=== PATIENT | female | born 1940 | race Caucasian/White ===

== ENCOUNTER 2019-06-13 14:15 | Inpatient (IN) | payer MEDICARE, OTHER ==
[~2019-06-13] VITALS: Ht 160 cm; Wt 54.4 kg
[2019-06-13] MEDS ORDERED: TEMA15CA PO (16:20)
[2019-06-13] MEDS ORDERED: ROSU10TA2 PO (16:20)
[2019-06-13] MEDS ORDERED: METF-494 PO (16:20)
[2019-06-13] MEDS ORDERED: HYDR-3972 PO (16:20)
[2019-06-13] MEDS ORDERED: MAG355OR18 PO (16:20)
[2019-06-13] MEDS ORDERED: MAGN400O6 PO (16:20)
[2019-06-13] MEDS ORDERED: ACET-2154 PO (16:20)
[2019-06-13] MEDS ORDERED: ENOX40DI SQ (16:20)
[2019-06-13] MEDS ORDERED: GABA-532 PO (16:20)
[2019-06-13] MEDS ORDERED: METO-358 PO (16:20)
[2019-06-13 16:38] VITALS: BP 129/54
[2019-06-13] MEDS ORDERED: INSU100V28 SQ (17:36)
--- NOTE | 2019-06-13 17:50 | NUR ---
Patient S/P admission around 4pm via ambulance with 2 EMT in stretcher. Stable condition. DX: S/P left Hip fracture/ left hemiatroplasty. Accdg to EMT, Conrath 5-325mg was given to the patient around 330pm. Alert orientedx3, icelandic speaking.Redness at sacrum, left heel redness, left hip puja in suture noted. off loading and applied zguard. ordered wound consult and air mattress bed. Continent with bowel and bladder with diaper and abductor pillow. not in distress. will continue monitor
--- NOTE | 2019-06-13 19:30 | NUR ---
Sleeping during initial rounds. HOB slightly elevated. No s/s of respiratory distress noted. Safety measure and fall precaution maintained. Continue care as planned.
[2019-06-13 20:00] VITALS: BP 127/55
[2019-06-13] MEDS ORDERED: Z GUARD REMEDY PASTE 57 GM TUBE TOP PRN (20:15)
[2019-06-13] MEDS ORDERED: TEMAZEPAM 15 MG CAPSULE PO PRN (22:45)
[2019-06-13] MEDS ORDERED: MAG HYDROX/AL HYDROX/SIMETH 30 ML LIQUID UDC PO PRN (22:45)
[2019-06-13] MEDS ORDERED: MAGNESIUM HYDROXIDE 30 ML LIQUID UDC PO PRN (22:45)
[2019-06-13] MEDS ORDERED: ACETAMINOPHEN 325 MG TABLET PO PRN (22:45)
[2019-06-13] MEDS ORDERED: DEXTROSE 50% 50 ML DISP.SYRIN IV PRN (22:45)
[2019-06-14 05:00] VITALS: BP 142/74
[2019-06-14] MEDS: HYDROCODONE/APAP 5-325MG TABLET PO PRN ×3 (05:16→21:32)
[2019-06-14] MEDS: BLOOD SUGAR DIAGNOSTIC 1 EACH STRIP VI SCH ×4 (05:46→21:39)
--- NOTE | 2019-06-14 06:35 | NUR ---
Shift End Report: Vs stable. Slept well. No complaint presented all night. No s/s of hypo/hyperglycemia. All needs attended and met. No significant event reported all night. Continue current rehab plan of care.
[2019-06-14 07:53] VITALS: BP 134/63
[2019-06-14] MEDS: GABAPENTIN 100 MG CAPSULE PO SCH ×3 (08:16→17:07)
[2019-06-14] MEDS: METOPROLOL SUCCINATE XL 50 MG TAB.SR.24H PO SCH (08:18)
[2019-06-14] MEDS: ENOXAPARIN SODIUM 40 MG/0.4 ML DISP.SYRIN SQ SCH (08:19)
[2019-06-14] MEDS: INSULIN REGULAR, HUMAN 300 UNIT/3 ML VIAL SQ PRN ×4 (09:13→21:41)
--- NOTE | 2019-06-14 09:25 | NUR ---
Patient awake, alert, oriented x 3, not in any form of distress, on room air. She denies any pain or discomfort at this time. Patient assisted by OT to transfer and sit on the wheelchair for breakfast. Due medications administered and tolerated well. Needs attended to promptly. Call light and frequently used items placed within reach.
[2019-06-14] MEDS ORDERED: METF-440 PO (12:02)
[2019-06-14] MEDS: METFORMIN HCL 500 MG TABLET PO SCH ×2 (12:10→17:07)
[2019-06-14] MEDS: MAGNESIUM HYDROXIDE 30 ML LIQUID UDC PO PRN (13:08)
--- NOTE | 2019-06-14 13:16 | NUR ---
Patient complained of no BM for more than 3 days, notified Dr. Gooden and ordered Colace 200mg PO Q HS and change MOM order to 30ml PO daily PRN.
[2019-06-14 15:21] VITALS: BP 122/48
[2019-06-14 20:39] VITALS: BP 119/60
[2019-06-14] MEDS: DOCUSATE SODIUM 100 MG CAPSULE PO SCH (21:32)
[2019-06-14] MEDS: ATORVASTATIN 20 MG TABLET PO SCH (21:32)
[2019-06-15 04:20] VITALS: BP 144/63
[2019-06-15] MEDS: HYDROCODONE/APAP 5-325MG TABLET PO PRN (06:45)
[2019-06-15] MEDS: MAGNESIUM HYDROXIDE 30 ML LIQUID UDC PO PRN (06:45)
[2019-06-15] MEDS: BLOOD SUGAR DIAGNOSTIC 1 EACH STRIP VI SCH ×4 (07:41→20:12)
[2019-06-15 07:51] LABS: BASOPHILS % (AUTO) 0.3 % (0.0-2.0); EOSINOPHILS # (AUTO) 0.1 K/uL (0.0-0.7); EOSINOPHILS % (AUTO) 0.8 % (0.0-7.0); HEMATOCRIT 32.2 % (31.2-41.9); HEMOGLOBIN 11.2 g/dL (10.9-14.3); LYMPHOCYTES # (AUTO) 1.5 K/uL (20.0-40.0); MEAN CORPUSCULAR HGB CONC 35 g/dL (32.3-35.6); MEAN CORPUSCULAR VOLUME 86.4 fL (75.5-95.3); MONOCYTES # (AUTO) 0.7 K/uL (2.0-10.0); MONOCYTES % (AUTO) 5.7 % (0.0-11.0); NEUTROPHILS # (AUTO) 9.9 K/uL (1.8-8.9); NEUTROPHILS % (AUTO) 81.2 % (38.5-71.5); PLATELET COUNT (AUTO) 315 K/uL (179-408); RED BLOOD CELL COUNT(AUTO) 3.73 MIL/uL (3.63-4.92); WHITE BLOOD COUNT (AUTO) 12.1 K/uL (3.8-11.8)
[2019-06-15 07:52] LABS: THYROID STIMULATING HORMONE 1.733 mIU/mL (0.358-3.740)
[2019-06-15 08:04] VITALS: BP 145/65
[2019-06-15 08:13] LABS: BILIRUBIN,TOTAL 0.6 mg/dL (0.2-1.0); CREATININE 0.7 mg/dL (0.6-1.3); MAGNESIUM 1.8 mg/dL (1.8-2.4); PHOSPHOROUS 3.6 mg/dL (2.5-4.9); POTASSIUM 4.5 mmol/L (3.5-5.1); TOTAL PROTEIN, SERUM 6.9 g/dL (6.4-8.2)
[2019-06-15] MEDS: METFORMIN HCL 500 MG TABLET PO SCH ×2 (08:50→17:13)
[2019-06-15] MEDS: METOPROLOL SUCCINATE XL 50 MG TAB.SR.24H PO SCH (08:51)
[2019-06-15] MEDS: ENOXAPARIN SODIUM 40 MG/0.4 ML DISP.SYRIN SQ SCH (08:52)
[2019-06-15] MEDS: GABAPENTIN 100 MG CAPSULE PO SCH ×3 (08:53→16:36)
[2019-06-15] MEDS: INSULIN REGULAR, HUMAN 300 UNIT/3 ML VIAL SQ PRN ×3 (08:54→20:15)
[2019-06-15] MEDS ORDERED: BISACODYL 10 MG SUPP.RECT RC PRN (09:00)
[2019-06-15] MEDS: BISACODYL 5 MG TABLET.DR PO PRN (11:59)
--- NOTE | 2019-06-15 12:30 | NUR ---
Received patient awake in bed, alert and oriented x3-4 in stable condition. Continue pain management prior to therapy and if needed. Patient had small amount BM. Bisacodyl 10mg given. Continue skin care provided. off loading for heel redness. no redness noted during rounds. not in distress. will continue monitor
[2019-06-15 15:41] VITALS: BP 143/45
--- NOTE | 2019-06-15 15:45 | NUR ---
INTERDISCIPLINARY TEAM CONFERENCE
[2019-06-15 19:49] VITALS: BP 138/60
[2019-06-15] MEDS: DOCUSATE SODIUM 100 MG CAPSULE PO SCH (20:09)
[2019-06-15] MEDS: ATORVASTATIN 20 MG TABLET PO SCH (20:09)
--- NOTE | 2019-06-16 02:56 | NUR ---
Patient slept on and off during the night. no complaint of pain/discomfort during rounds. not in distress. WBC-12.1, For UA/CS as ordered by MD Gooden. will continue monitor
[2019-06-16 05:00] LABS: *BILIRUBIN,URIN NEGATIVE (NEGATIVE); *BLOOD, URINE NEGATIVE (NEGATIVE); *CLARITY,URINE CLEAR (CLEAR); *COLOR,URINE YELLOW (YELLOW); *KETONES,URINE NEGATIVE (NEGATIVE); *UROBILINOGEN,URINE 0.2 E.U./dl (NORMAL); LEUKOCYTE ESTERASE ,URINE NEGATIVE (NEGATIVE); NITRITE, URINE NEGATIVE (NEGATIVE); UGLUCOSE TRACE (NEGATIVE)
[2019-06-16 06:09] VITALS: BP 146/60
[2019-06-16] MEDS: BLOOD SUGAR DIAGNOSTIC 1 EACH STRIP VI SCH ×4 (06:15→20:19)
--- NOTE | 2019-06-16 06:23 | NUR ---
Patient urine for UA/CS collected via straight catheter. awaiting result.
--- NOTE | 2019-06-16 07:36 | NUR ---
Patient noted resting in bed with eyes closed, no complaints of pain, no signs of distress, call light in reach, bed locked and in lowest position, all needs met at this time, all needs met at this time
[2019-06-16 08:00] VITALS: BP 152/68
[2019-06-16] MEDS: INSULIN REGULAR, HUMAN 300 UNIT/3 ML VIAL SQ PRN ×3 (08:06→20:21)
[2019-06-16] MEDS: GABAPENTIN 100 MG CAPSULE PO SCH ×3 (08:17→17:18)
[2019-06-16] MEDS: METFORMIN HCL 500 MG TABLET PO SCH ×2 (08:17→17:18)
[2019-06-16] MEDS: ENOXAPARIN SODIUM 40 MG/0.4 ML DISP.SYRIN SQ SCH (08:18)
[2019-06-16] MEDS: METOPROLOL SUCCINATE XL 50 MG TAB.SR.24H PO SCH (08:18)
[2019-06-16] MEDS: MAGNESIUM HYDROXIDE 30 ML LIQUID UDC PO PRN (08:22)
[2019-06-16] MEDS: BISACODYL 5 MG TABLET.DR PO PRN (08:23)
--- NOTE | 2019-06-16 13:00 | NUR ---
INDIVIDUALIZED PLAN OF CARE
[2019-06-16 16:55] VITALS: BP 130/56
--- NOTE | 2019-06-16 19:20 | NUR ---
RECEIVED PATIENT AWAKE IN BED. FAMILY AT THE BEDSIDE. SALVADOREAN SPEAKING ONLY. AO X 4. PATIENT IS NOT IN PAIN AT THE MOMENT. NO ACUTE DISTRESS NOTED. NO SHORTNESS OF BREATH. NEEDS ATTENDED, CALL LIGHT WITHIN REACH. FALL PRECAUTIONS IN PLACE. BED LOCKED, IN LOWEST POSITION, WITH TWO SIDE RAILS UP. WILL CONTINUE TO MONITOR
[2019-06-16 20:00] VITALS: BP 123/51
[2019-06-16] MEDS: DOCUSATE SODIUM 100 MG CAPSULE PO SCH (20:17)
[2019-06-16] MEDS: ATORVASTATIN 20 MG TABLET PO SCH (20:17)
[2019-06-17 04:00] VITALS: BP 116/65
--- NOTE | 2019-06-17 06:13 | NUR ---
PATIENT SLEPT WELL THROUGHOUT THE NIGHT. NO COMPLAINTS OF PAIN. TOLERATED MEDICATIONS. WOUND CARE RENDERED. DRESSING KEPT CLEAN AND DRY. ALL NEEDS ATTENDED. WILL ENDORSE ACCORDINGLY.
[2019-06-17] MEDS: BLOOD SUGAR DIAGNOSTIC 1 EACH STRIP VI SCH ×4 (06:34→20:04)
--- NOTE | 2019-06-17 07:17 | NUR ---
Patient noted resting in bed with eyes closed, no facial cues of pain at this time, no signs of distress noted, call light in reach, bed locked and in lowest position, all needs met at this time
[2019-06-17 08:00] VITALS: BP 116/65
[2019-06-17] MEDS: INSULIN REGULAR, HUMAN 300 UNIT/3 ML VIAL SQ PRN ×4 (08:01→20:06)
[2019-06-17] MEDS: ENOXAPARIN SODIUM 40 MG/0.4 ML DISP.SYRIN SQ SCH (08:03)
[2019-06-17] MEDS: METFORMIN HCL 500 MG TABLET PO SCH ×2 (08:06→17:26)
[2019-06-17] MEDS: GABAPENTIN 100 MG CAPSULE PO SCH ×3 (08:06→17:27)
[2019-06-17] MEDS: METOPROLOL SUCCINATE XL 50 MG TAB.SR.24H PO SCH (08:06)
[2019-06-17 16:42] VITALS: BP 138/57
[2019-06-17] MEDS: HYDROCODONE/APAP 5-325MG TABLET PO PRN (17:30)
[2019-06-17] MEDS: DOCUSATE SODIUM 100 MG CAPSULE PO SCH (20:01)
[2019-06-17] MEDS: ATORVASTATIN 20 MG TABLET PO SCH (20:01)
[2019-06-17 20:42] VITALS: BP 135/56
--- NOTE | 2019-06-17 21:27 | NUR ---
awake alert and oriented x2-3 Kosovan speaking. Fall precautions maintained. Admitted for left hip hemiarthroplasty. Left hip dressing clean dry and intact. Patient has a stage 2 sacral wound. Wound consult done. Mepilex to sacral wound. Will monitor patient. Compliant with care and meds. VSS. No complaints presented during shift. Making needs known.
[2019-06-18 04:00] VITALS: BP 137/60
[2019-06-18] MEDS: BLOOD SUGAR DIAGNOSTIC 1 EACH STRIP VI SCH ×4 (06:34→20:57)
[2019-06-18] MEDS: INSULIN REGULAR, HUMAN 300 UNIT/3 ML VIAL SQ PRN ×4 (08:10→21:00)
[2019-06-18] MEDS: METFORMIN HCL 500 MG TABLET PO SCH ×2 (08:19→16:59)
[2019-06-18] MEDS: METOPROLOL SUCCINATE XL 50 MG TAB.SR.24H PO SCH (08:19)
[2019-06-18] MEDS: GABAPENTIN 100 MG CAPSULE PO SCH ×3 (08:19→16:59)
[2019-06-18] MEDS: HYDROCODONE/APAP 5-325MG TABLET PO PRN ×2 (08:21→19:00)
[2019-06-18 08:30] VITALS: BP 160/66
[2019-06-18] MEDS: ENOXAPARIN SODIUM 40 MG/0.4 ML DISP.SYRIN SQ SCH (08:32)
--- NOTE | 2019-06-18 08:40 | NUR ---
Patient noted resting in bed with eyes closed, complaints of pain, prn norco given, no signs of distress noted, call light in reach, bed locked and in lowest position, all needs met at this time
--- NOTE | 2019-06-18 14:17 | NUR ---
WOUND CARE CONSULT: PT PRESENTS WITH RASH TO LOWER BUTTOCKS, PERINEUM, INNER BUTTOCKS WELL DEEP TISSUE INJURY IN EVOLUTION TO SACRUM. PT IS INCONTINENT. RECOMMENDATIONS MADE FOR WOUND CARE AND SKIN PROTECTION. DISCUSSED WITH NURSING STAFF. IN AGREEMENT WITH PLAN OF CARE. Addendum: 06/18/19 at 1418 by KAVYA ISABEL RN RN Amended: Links added. Addendum: 06/18/19 at 1423 by AD PENA RN CORRECTION: ABOVE WOUND ASSESSMENT WAS DONE BY AD PENA RN (WOUND CARE).
--- NOTE | 2019-06-18 14:34 | NUR ---
Wound consult placed for patient with 4cm X 2cm DTI/ depth undetermined, purple discoloration noted to sacral area.
[2019-06-18 16:53] VITALS: BP 150/64
[2019-06-18] MEDS: CLOTRIMAZOLE 1% CREAM 30 GM TUBE TOP SCH (17:09)
[2019-06-18 20:00] VITALS: BP 127/46
[2019-06-18] MEDS: DOCUSATE SODIUM 100 MG CAPSULE PO SCH (20:57)
[2019-06-18] MEDS: ATORVASTATIN 20 MG TABLET PO SCH (20:58)
--- NOTE | 2019-06-19 04:56 | NUR ---
Received patient in bed. AAO x3. Not in acute distress or SOB. On room air. Able to make needs known. Omani speaking. Complained of pain on her left hip. Physical assessment done. All due medication given and well tolerated. Accucheck @2100 BS:168 covered by 3 units insulin based on sliding scale. All needs attended promptly. Fall prevention observed. Safety measures maintained. Skin care rendered and applied Mepilex on the sacral area. Educated her to use the call light when going out of bed. Bed in low and lock position, bed alarm on, side rails up x2 for safety. Call light and frequently used items within reach. Continue to monitor and will endorse to oncoming nurse accordingly.
[2019-06-19 05:41] VITALS: BP 148/59
[2019-06-19] MEDS: BLOOD SUGAR DIAGNOSTIC 1 EACH STRIP VI SCH ×4 (06:47→20:23)
[2019-06-19 08:21] VITALS: BP 134/55
[2019-06-19] MEDS: GABAPENTIN 100 MG CAPSULE PO SCH ×3 (08:22→17:21)
[2019-06-19] MEDS: METFORMIN HCL 500 MG TABLET PO SCH ×2 (08:22→17:21)
[2019-06-19] MEDS: METOPROLOL SUCCINATE XL 50 MG TAB.SR.24H PO SCH (08:22)
[2019-06-19] MEDS: ENOXAPARIN SODIUM 40 MG/0.4 ML DISP.SYRIN SQ SCH (08:29)
[2019-06-19] MEDS: CLOTRIMAZOLE 1% CREAM 30 GM TUBE TOP SCH ×2 (08:31→17:22)
[2019-06-19] MEDS: HYDROCODONE/APAP 5-325MG TABLET PO PRN (10:17)
[2019-06-19] MEDS: INSULIN REGULAR, HUMAN 300 UNIT/3 ML VIAL SQ PRN ×2 (11:46→20:26)
[2019-06-19 15:28] VITALS: BP 125/55
--- NOTE | 2019-06-19 16:11 | NUR ---
PATIENT CONTINUE BLOOD SUGAR MONITORING WITH SLIDING SCALE PROTOCOL IF NEEDED. NO SIGNS OF HYPO/HYPERGLYCEMIA. PATIENT CONTINUE THERAPY FOR AMBULATION, INCREASE STRENGHT AND ENDURANCE. WILL CONTINUE MONITOR
[2019-06-19 20:00] VITALS: BP 119/48
[2019-06-19] MEDS: ATORVASTATIN 20 MG TABLET PO SCH (20:19)
[2019-06-19] MEDS: DOCUSATE SODIUM 100 MG CAPSULE PO SCH (20:19)
--- NOTE | 2019-06-20 01:15 | NUR ---
Awake alert and oriented x2-3. Compliant with care. Making needs known. Fall precautions maintained. Siderails up for safety. Accucheck @ 2100 240 with coverage given. Left hip dressing intact with puja. Repositioned for comfort. Turned to sides. Incontinent of bowel and bladder. Kept clean and dry. No BM noted this shift. Dressing intact to sacral wound. Wound care nurse seen patient earlier this shift. Will monitor patient. VSS.
[2019-06-20 05:00] VITALS: BP 129/49
[2019-06-20] MEDS: BLOOD SUGAR DIAGNOSTIC 1 EACH STRIP VI SCH ×4 (06:31→20:32)
--- NOTE | 2019-06-20 06:51 | NUR ---
End of shift note: Quiet night. Slept well most of the shift. No acute distress noted. VSS. Incontinent of bowel and bladder. Kept clean and dry. Will monitor patient. Attended to needs. Accucheck @7a 207. Fall precautions maintained. Left hip dressing intact.
[2019-06-20 08:00] VITALS: BP 135/58
[2019-06-20] MEDS: INSULIN REGULAR, HUMAN 300 UNIT/3 ML VIAL SQ PRN ×4 (08:00→20:37)
[2019-06-20] MEDS: GABAPENTIN 100 MG CAPSULE PO SCH ×3 (08:08→16:45)
[2019-06-20] MEDS: METOPROLOL SUCCINATE XL 50 MG TAB.SR.24H PO SCH (08:09)
[2019-06-20] MEDS: METFORMIN HCL 500 MG TABLET PO SCH ×2 (08:09→17:08)
[2019-06-20] MEDS: HYDROCODONE/APAP 5-325MG TABLET PO PRN ×2 (08:12→17:09)
[2019-06-20] MEDS: ENOXAPARIN SODIUM 40 MG/0.4 ML DISP.SYRIN SQ SCH (08:19)
[2019-06-20] MEDS: CLOTRIMAZOLE 1% CREAM 30 GM TUBE TOP SCH ×2 (08:49→16:46)
--- NOTE | 2019-06-20 15:43 | NUR ---
Patient came back from F/U appointment at 15:30pm with Dr. Schaefer. NO acute distress. NO c/o pain. VS stable. Left hip surgical site puja removed and with steri-strips. With an order for WBAT and to have a F/U in 3 month with new X-Rays.
[2019-06-20 16:42] VITALS: BP 167/59
--- NOTE | 2019-06-20 19:33 | NUR ---
Patient in stable condition, repositioned for comfort as needed throughout shift. Stephan 5/325mg administered for left hip pain and effective. Dressing changed as ordered on Left upper buttock. Skin kept clean and dry. Needs attended and met, safety measures in place, call light left at bed side, endorsed to next shift and will continue with care.
--- NOTE | 2019-06-20 19:37 | NUR ---
Endorsed to next shift.
[2019-06-20 20:03] VITALS: BP 113/49
[2019-06-20] MEDS: ATORVASTATIN 20 MG TABLET PO SCH (20:28)
[2019-06-20] MEDS: DOCUSATE SODIUM 100 MG CAPSULE PO SCH (20:28)
--- NOTE | 2019-06-21 | NUR ---
resting in bed upon rounds watching TV. No acute distress noted. Needs attended. VSS kept comfortable. Compliant with meds. Tolerated po meds well. No complaints presented during shift. Incontinent of urine and BM x2 Kept clean and dry. Will monitor patient.
[2019-06-21 04:00] VITALS: BP 138/69
[2019-06-21] MEDS: HYDROCODONE/APAP 5-325MG TABLET PO PRN ×2 (04:53→21:45)
[2019-06-21] MEDS: BLOOD SUGAR DIAGNOSTIC 1 EACH STRIP VI SCH ×4 (06:30→21:17)
[2019-06-21 07:41] VITALS: BP 133/57
[2019-06-21] MEDS: GABAPENTIN 100 MG CAPSULE PO SCH ×3 (08:08→16:40)
[2019-06-21] MEDS: METFORMIN HCL 500 MG TABLET PO SCH ×2 (08:08→17:06)
[2019-06-21] MEDS: METOPROLOL SUCCINATE XL 50 MG TAB.SR.24H PO SCH (08:08)
[2019-06-21] MEDS: CLOTRIMAZOLE 1% CREAM 30 GM TUBE TOP SCH ×2 (08:09→16:43)
[2019-06-21] MEDS: INSULIN REGULAR, HUMAN 300 UNIT/3 ML VIAL SQ PRN ×4 (08:11→21:19)
[2019-06-21] MEDS: ENOXAPARIN SODIUM 40 MG/0.4 ML DISP.SYRIN SQ SCH (08:12)
[2019-06-21] MEDS: BISACODYL 5 MG TABLET.DR PO PRN (08:16)
--- NOTE | 2019-06-21 10:28 | NUR ---
RECEIVED PATIENT AWAKE IN BED. NO BM FOR 2 DAYS. PRUNE JUICE 2 CUPS GIVEN. PATIENT VERBALIZE NEED FOR STOOL SOFTENER. BISACODYL 10MG GIVEN PRN DAILY. CONTINUE PAIN MANAGEMENT PRIOR THERAPY AND IF NEEDED. NOT IN DISTRESS. WILL CONTINUE MONITOR
[2019-06-21 15:35] VITALS: BP 126/55
[2019-06-21 20:41] VITALS: BP 112/55
[2019-06-21] MEDS: ATORVASTATIN 20 MG TABLET PO SCH (21:14)
[2019-06-21] MEDS: DOCUSATE SODIUM 100 MG CAPSULE PO SCH (21:14)
--- NOTE | 2019-06-22 04:36 | NUR ---
Pt in stable condition, able to sleep during shift. pain is well managed and pt able to sleep during shift
[2019-06-22 05:48] VITALS: BP 107/50
[2019-06-22] MEDS: HYDROCODONE/APAP 5-325MG TABLET PO PRN (06:09)
[2019-06-22] MEDS: BLOOD SUGAR DIAGNOSTIC 1 EACH STRIP VI SCH ×4 (06:53→20:33)
[2019-06-22] MEDS: METOPROLOL SUCCINATE XL 50 MG TAB.SR.24H PO SCH (08:04)
[2019-06-22] MEDS: METFORMIN HCL 500 MG TABLET PO SCH ×2 (08:04→17:06)
[2019-06-22] MEDS: GABAPENTIN 100 MG CAPSULE PO SCH ×3 (08:04→17:06)
[2019-06-22] MEDS: INSULIN REGULAR, HUMAN 300 UNIT/3 ML VIAL SQ PRN ×4 (08:08→20:35)
[2019-06-22] MEDS: ENOXAPARIN SODIUM 40 MG/0.4 ML DISP.SYRIN SQ SCH (08:08)
[2019-06-22] MEDS: CLOTRIMAZOLE 1% CREAM 30 GM TUBE TOP SCH ×2 (08:09→17:07)
[2019-06-22 08:14] VITALS: BP 116/37
--- NOTE | 2019-06-22 10:21 | NUR ---
WOUND CARE FOLLOW UP: PT SEEN FOR SACRAL DEEP TISSUE INJURY IN EVOLUTION WELL RASH TO GLUTEAL CREASE AREA, LOWER BUTTOCKS AND PERINEUM. RECOMMENDATIONS MADE FOR SKIN PROTECTION AND WOUND CARE. DISCUSSED WITH NURSING STAFF AND P.T. FIRST STEP LOW AIRLOSS MATTRESS ON ORDER. CURRENT MAINE SCORE IS 14. PT IS INCONTINENT. MD IN AGREEMENT WITH PLAN OF CARE. Addendum: 06/22/19 at 1023 by AD PENA RN Amended: Links added.
--- NOTE | 2019-06-22 14:04 | NUR ---
INTERDISCIPLINARY TEAM CONFERENCE
[2019-06-22 18:08] VITALS: BP 133/58
--- NOTE | 2019-06-22 18:18 | NUR ---
PATIENT SEEN AND EXAMINED BY WOUND NURSE WITH CONTINUE ORDER CLEANSE AND PAT DRY, APPLIED WITH LOTRIM THEN OIL EMULSION THEN COVERED WITH MEPILEX FROM SACRUM, WHILE LOTRIM FOR RASHES. CONTINUE PAIN MANAGEMENT IF NEEDED WITH GOOD EFFECT. CONTINUE THERAPY FOR ADL ACTIVITIES. TOLERATED WELL. TURNING POSITIONING AND OFF LOADING HEAL FOR SKIN CARE. WILL CONTINUE MONITOR
--- NOTE | 2019-06-22 19:35 | NUR ---
PATIENT IS IN BED, ALERT AND VERBALLY RESPONSIVE. DENIES PAIN AT THIS TIME. NO RESPIRATORY OR ACUTE DISTRESS AT THIS TIME. FALL AND SAFETY PRECAUTIONS OBSERVED, WILL CONTINUE TO MONITOR PATIENT. ALL NEEDS ATTENDED.
[2019-06-22] MEDS: ATORVASTATIN 20 MG TABLET PO SCH (20:26)
[2019-06-22] MEDS: DOCUSATE SODIUM 100 MG CAPSULE PO SCH (20:26)
[2019-06-22 20:37] VITALS: BP 130/62
[2019-06-23 04:45] VITALS: BP 131/62
--- NOTE | 2019-06-23 06:16 | NUR ---
PATIENT IS IN BED WITH HEAD OF BED ELEVATED AT 60 DEGREES, ALERT AND VERBALLY RESPONSIVE. CAN MAKE NEEDS KNOWN. DENIES PAIN AT THIS TIME. DENIES DIFFICULTY BREATHING. RESPIRATIONS EVEN AND UNLABORED. FALL AND SAFETY PRECAUTIONS OBSERVED. RECEIVED 1-PERSON ASSIST WITH ADLS. TURNED AND REPOSITIONED FOR SKIN MANAGEMENT. CONTINUES TO BE ON SPECIALTY MATTRESS. TREATMENT DONE ORDERED. KEPT PATIENT WARM, DRY, CLEAN, AND COMFORTABLE. LEFT PATIENT IN BED WITH BED WHEELS LOCKED, CALL LIGHT AND PERSONAL BELONGINGS WITHIN REACH. BED AT LOW POSITION AND BED ALARM ON.
[2019-06-23] MEDS: BLOOD SUGAR DIAGNOSTIC 1 EACH STRIP VI SCH ×4 (06:42→20:43)
--- NOTE | 2019-06-23 07:25 | NUR ---
Patient noted resting in bed with eyes closed, no facial cues of pain,no signs of distress at this time, call light in reach, bed locked and in lowest position, all needs met at this time
[2019-06-23 07:33] VITALS: BP 122/55
[2019-06-23] MEDS: INSULIN REGULAR, HUMAN 300 UNIT/3 ML VIAL SQ PRN ×4 (08:06→20:56)
[2019-06-23] MEDS: ENOXAPARIN SODIUM 40 MG/0.4 ML DISP.SYRIN SQ SCH (08:07)
[2019-06-23] MEDS: METFORMIN HCL 500 MG TABLET PO SCH ×2 (08:10→17:04)
[2019-06-23] MEDS: GABAPENTIN 100 MG CAPSULE PO SCH ×3 (08:11→16:45)
[2019-06-23] MEDS: METOPROLOL SUCCINATE XL 50 MG TAB.SR.24H PO SCH (08:11)
[2019-06-23] MEDS: HYDROCODONE/APAP 5-325MG TABLET PO PRN ×2 (08:11→20:44)
[2019-06-23] MEDS: CLOTRIMAZOLE 1% CREAM 30 GM TUBE TOP SCH ×2 (08:12→16:46)
[2019-06-23 15:11] VITALS: BP 119/51
[2019-06-23 19:34] VITALS: BP 129/52
[2019-06-23] MEDS: DOCUSATE SODIUM 100 MG CAPSULE PO SCH (20:42)
[2019-06-23] MEDS: ATORVASTATIN 20 MG TABLET PO SCH (20:42)
--- NOTE | 2019-06-24 03:09 | NUR ---
Received patient in bed. AAO x3. Not in acute distress or SOB. On room air. On air mattress. Able to make needs known. [place] speaking. Complained of pain on her left hip. Narco 5-325 mg given and effective. Pain assessed and reassessed after pain medication. Physical assessment done. All due medication given and well tolerated. Accucheck @2100 BS:250 covered by 4 units insulin based on sliding scale. All needs attended promptly. Repositioned. Fall prevention observed. Safety measures maintained. Skin care rendered and applied Mepilex on the sacral area. Bed in low and lock position, bed alarm on, side rails up x2 for safety. Call light and frequently used items within reach. Continue to monitor and will endorse to oncoming nurse accordingly.
[2019-06-24 04:30] VITALS: BP 142/58
[2019-06-24] MEDS: BLOOD SUGAR DIAGNOSTIC 1 EACH STRIP VI SCH ×4 (06:42→20:27)
[2019-06-24 08:00] VITALS: BP 131/54
[2019-06-24] MEDS: GABAPENTIN 100 MG CAPSULE PO SCH ×3 (08:10→17:17)
[2019-06-24] MEDS: HYDROCODONE/APAP 5-325MG TABLET PO PRN (08:10)
[2019-06-24] MEDS: METFORMIN HCL 500 MG TABLET PO SCH ×2 (08:10→17:18)
[2019-06-24] MEDS: METOPROLOL SUCCINATE XL 50 MG TAB.SR.24H PO SCH (08:10)
[2019-06-24] MEDS: ENOXAPARIN SODIUM 40 MG/0.4 ML DISP.SYRIN SQ SCH (08:11)
[2019-06-24] MEDS: INSULIN REGULAR, HUMAN 300 UNIT/3 ML VIAL SQ PRN ×4 (08:12→20:32)
[2019-06-24] MEDS: CLOTRIMAZOLE 1% CREAM 30 GM TUBE TOP SCH ×2 (08:49→17:17)
[2019-06-24 16:31] VITALS: BP 135/60
[2019-06-24] MEDS: ATORVASTATIN 20 MG TABLET PO SCH (20:27)
[2019-06-24] MEDS: DOCUSATE SODIUM 100 MG CAPSULE PO SCH (20:28)
[2019-06-24 21:07] VITALS: BP 145/60
[2019-06-25 04:00] VITALS: BP 130/57
--- NOTE | 2019-06-25 04:31 | NUR ---
Received patient in bed. AAO x2. Not in acute distress or SOB. On room air. On air mattress. Able to make needs known. Malagasy speaking. Complained of pain on her left hip. Physical assessment done. All due medication given and well tolerated. Accucheck @2100 BS:226 covered by 4 units insulin based on sliding scale. All needs attended promptly. Repositioned. Fall prevention observed. Safety measures maintained. Skin care rendered and applied Mepilex on the sacral area. Bed in low and lock position, bed alarm on, side rails up x2 for safety. Call light and frequently used items within reach. Continue to monitor and will endorse to oncoming nurse accordingly.
[2019-06-25] MEDS: BLOOD SUGAR DIAGNOSTIC 1 EACH STRIP VI SCH ×4 (06:35→20:27)
--- NOTE | 2019-06-25 07:19 | NUR ---
Patient noted resting in bed with eyes closed, no facial cues of pain, air mattress inplace, no signs of distress at this time, call light in reach, bed locked and in lowest position, all needs met at this time
[2019-06-25 08:00] VITALS: BP 144/56
[2019-06-25] MEDS: INSULIN REGULAR, HUMAN 300 UNIT/3 ML VIAL SQ PRN ×4 (08:18→20:25)
[2019-06-25] MEDS: ENOXAPARIN SODIUM 40 MG/0.4 ML DISP.SYRIN SQ SCH (08:18)
[2019-06-25] MEDS: HYDROCODONE/APAP 5-325MG TABLET PO PRN (08:21)
[2019-06-25] MEDS: GABAPENTIN 100 MG CAPSULE PO SCH ×3 (08:21→17:25)
[2019-06-25] MEDS: METFORMIN HCL 500 MG TABLET PO SCH ×2 (08:21→17:25)
[2019-06-25] MEDS: METOPROLOL SUCCINATE XL 50 MG TAB.SR.24H PO SCH (08:22)
[2019-06-25] MEDS: CLOTRIMAZOLE 1% CREAM 30 GM TUBE TOP SCH ×2 (08:22→17:27)
[2019-06-25 16:34] VITALS: BP 125/56
[2019-06-25] MEDS: ATORVASTATIN 20 MG TABLET PO SCH (20:26)
[2019-06-25] MEDS: DOCUSATE SODIUM 100 MG CAPSULE PO SCH (20:26)
[2019-06-25 20:29] VITALS: BP 120/49
[2019-06-26 04:00] VITALS: BP 129/62
--- NOTE | 2019-06-26 06:23 | NUR ---
Received patient in bed. AAO x2. Not in acute distress or SOB. On room air. On air mattress. Able to make needs known. Burundian speaking. Complained of pain on her left hip. Physical assessment done. All due medication given and well tolerated. Accucheck @2100 BS:239 covered by 4 units insulin based on sliding scale, Accucheck @0615: 279. All needs attended promptly. Repositioned. Fall prevention observed. Safety measures maintained. Skin care rendered and applied Mepilex on the sacral area. Bed in low and lock position, bed alarm on, side rails up x2 for safety. Call light and frequently used items within reach. Continue to monitor and will endorse to oncoming nurse accordingly.
[2019-06-26] MEDS: BLOOD SUGAR DIAGNOSTIC 1 EACH STRIP VI SCH ×4 (06:32→20:55)
[2019-06-26 07:32] VITALS: BP 145/71
[2019-06-26] MEDS: GABAPENTIN 100 MG CAPSULE PO SCH ×3 (09:06→17:08)
[2019-06-26] MEDS: METFORMIN HCL 500 MG TABLET PO SCH ×2 (09:07→17:08)
[2019-06-26] MEDS: METOPROLOL SUCCINATE XL 50 MG TAB.SR.24H PO SCH (09:07)
[2019-06-26] MEDS: CLOTRIMAZOLE 1% CREAM 30 GM TUBE TOP SCH ×2 (09:08→17:08)
[2019-06-26] MEDS: HYDROCODONE/APAP 5-325MG TABLET PO PRN ×2 (09:09→21:00)
[2019-06-26] MEDS: ENOXAPARIN SODIUM 40 MG/0.4 ML DISP.SYRIN SQ SCH (09:10)
[2019-06-26] MEDS: INSULIN REGULAR, HUMAN 300 UNIT/3 ML VIAL SQ PRN ×4 (09:12→20:54)
[2019-06-26 15:44] VITALS: BP 133/63
--- NOTE | 2019-06-26 18:14 | NUR ---
Patient remains alert, oriented x 3, not in any form of distress. She complained of pain on the left hip, given PRN pain medication as ordered with noted relief. All due medications administered and tolerated well. Surgical incision site on the left hip noted with steri-strips, well coaptated, no discharges, and no signs of infections. Assisted patient with her needs promptly and met. Assisted patient to transfer from bed to sit on the wheelchair every mealtime. Patient participated with therapeutic exercises and tolerated well. Turned and reposition every 2 hours and heels off loaded when in bed. Kept patient clean and dry. Call light and frequently used items placed within reach. No significant change of condition noted during the shift.
--- NOTE | 2019-06-26 19:40 | NUR ---
RECEIVED PATIENT IN BED, ALERT AND VERBALLY RESPONSIVE. FAMILY AT BEDSIDE. DENIES PAIN AT THIS TIME. NO RESPIRATORY OR ACUTE DISTRESS AT THIS TIME. FALL AND SAFETY PRECAUTIONS OBSERVED, WILL CONTINUE TO MONITOR PATIENT. ALL NEEDS ATTENDED.
[2019-06-26 20:00] VITALS: BP 119/45
[2019-06-26] MEDS: ATORVASTATIN 20 MG TABLET PO SCH (20:48)
[2019-06-26] MEDS: DOCUSATE SODIUM 100 MG CAPSULE PO SCH (20:48)
[2019-06-27 05:00] VITALS: BP 131/63
--- NOTE | 2019-06-27 06:21 | NUR ---
PATIENT IS IN BED, ALERT AND VERBALLY RESPONSIVE. AFEBRILE. NO RESPIRATORY DISTRESS. DENIES PAIN AT THIS TIME. PATIENT SLEPT THROUGH THE NIGHT WITHOUT DIFFICULTY. KEPT PATIENT WARM, DRY, AND COMFORTABLE. TURNED AND REPOSITIONED FOR SKIN MANAGEMENT. ALL NEEDS ATTENDED. FALL, SAFETY, AND HIP PRECAUTIONS OBSERVED.
[2019-06-27] MEDS: BLOOD SUGAR DIAGNOSTIC 1 EACH STRIP VI SCH ×4 (06:45→20:50)
[2019-06-27 07:06] LABS: BASOPHILS % (AUTO) 0.6 % (0.0-2.0); EOSINOPHILS # (AUTO) 0.1 K/uL (0.0-0.7); EOSINOPHILS % (AUTO) 0.7 % (0.0-7.0); HEMATOCRIT 29.5 % (31.2-41.9); HEMOGLOBIN 10.4 g/dL (10.9-14.3); LYMPHOCYTES % (AUTO) 22.3 % (20.5-51.5); MEAN CORPUSCULAR HEMOGLOBIN 30.4 uug (24.7-32.8); MEAN CORPUSCULAR HGB CONC 35 g/dL (32.3-35.6); MEAN CORPUSCULAR VOLUME 85.8 fL (75.5-95.3); MONOCYTES # (AUTO) 0.6 K/uL (2.0-10.0); MONOCYTES % (AUTO) 7.1 % (0.0-11.0); NEUTROPHILS # (AUTO) 6.1 K/uL (1.8-8.9); NEUTROPHILS % (AUTO) 69.3 % (38.5-71.5); PLATELET COUNT (AUTO) 409 K/uL (179-408); RED BLOOD CELL COUNT(AUTO) 3.44 MIL/uL (3.63-4.92); WHITE BLOOD COUNT (AUTO) 8.8 K/uL (3.8-11.8)
[2019-06-27 07:27] LABS: BILIRUBIN,TOTAL 0.5 mg/dL (0.2-1.0); CREATININE 0.7 mg/dL (0.6-1.3); MAGNESIUM 1.8 mg/dL (1.8-2.4); PHOSPHOROUS 4.1 mg/dL (2.5-4.9); POTASSIUM 4.6 mmol/L (3.5-5.1); TOTAL PROTEIN, SERUM 7.4 g/dL (6.4-8.2)
[2019-06-27 08:00] VITALS: BP 116/51
[2019-06-27] MEDS: METFORMIN HCL 500 MG TABLET PO SCH ×2 (08:39→17:01)
[2019-06-27] MEDS: GABAPENTIN 100 MG CAPSULE PO SCH ×3 (08:40→16:58)
[2019-06-27] MEDS: METOPROLOL SUCCINATE XL 50 MG TAB.SR.24H PO SCH (08:40)
[2019-06-27] MEDS: INSULIN REGULAR, HUMAN 300 UNIT/3 ML VIAL SQ PRN ×4 (08:45→20:53)
[2019-06-27] MEDS: ENOXAPARIN SODIUM 40 MG/0.4 ML DISP.SYRIN SQ SCH (09:00)
[2019-06-27] MEDS: CLOTRIMAZOLE 1% CREAM 30 GM TUBE TOP SCH ×2 (09:11→16:58)
--- NOTE | 2019-06-27 10:00 | NUR ---
Received pt. in bed, A/Ox4 able to make her needs known. In no acute distress, afebrile, denies SOB or CP. All due AM medications given as ordered. No new skin condition noted, Lt. hip steri strips C/D/I with no s/sx of infection. Skin/wound care rendered, pt tolerated well. Floated mario heels while in bed. No s/sx of bleeding, currently on Lovenox SQ. No s/sx of hypo/hyperglycemia, monitored BG as ordered and covered accordingly. Pt. participated with OT this AM. Kept pt. clean and dry. All pt. needs attended and met promptly. Safety measures in place. Call light and all frequently used items within pt. reach.
--- NOTE | 2019-06-27 12:33 | NUR ---
WOUND CARE FOLLOW UP: PT SEEN FOR SACRAL WOUND WHICH IS NOW UNSTAGEABLE. RASH IMPROVING TO PERIWOUND, LOWER BUTTOCKS AND PERINEUM. RECOMMENDATIONS MADE FOR SKIN PROTECTION AND WOUND CARE. DISCUSSED WITH NURSING STAFF. PT AMBULATING WITH WALKER AND P.T. PT REMAINS INCONTINENT. IN AGREEMENT WITH PLAN OF CARE. Addendum: 06/27/19 at 1235 by AD PENA RN Amended: Links added. Addendum: 06/27/19 at 1242 by AD PENA RN ABOVE ASSESSMENT DISCUSSED WITH DIETITIAN AND HAND PLATE STACKER. DIETARY FOLLOWING PT.
--- NOTE | 2019-06-27 13:18 | NUR ---
PT. seen by wound nurse (Cherie), reassessed sacrum, inner buttock area with RN. Received recommendations and new orders. Wound care provided to pt. as ordered. RD came and evaluated pt. with recommendations for VIT C 500 mg QD, will notify MD for order. Kept pt. clean and dry on ESPERANZA. Turned and repositioned Q2H and encouraged pt. to turn as tolerated. Floated bilateral heels. Addendum: 06/27/19 at 1435 by CASIE METZGER RN Received order from Dr. Olson for VIT C 500 mg QD and senna 2 tabs QOD per family request. Orders noted and carried out accordingly.
[2019-06-27 16:59] VITALS: BP 116/39
[2019-06-27] MEDS: HYDROCODONE/APAP 5-325MG TABLET PO PRN (17:01)
--- NOTE | 2019-06-27 17:54 | NUR ---
EOS: Pt. received all due medications. PRN Ol[place] given for LT. hip pain. Noted with poor PO intake, encouraged supplement drink as tolerated. Pt. participated with PT/OT, ambulated with FWW + 1 person assist. All pt. needs attended and met promptly. Turned and repositioned pt q2h, remain on ESPERANZA. Wound care rendered as ordered. Safety measures in place. Call light and all frequently used items within pt. reach. Will endorse to oncoming shift.
--- NOTE | 2019-06-27 19:50 | NUR ---
RECEIVED PATIENT IN BED WITH FAMILY AT BEDSIDE. ALERT AND VERBALLY RESPONSIVE. AFEBRILE. NO RESPIRATORY DISTRESS. NO COMPLAINTS OF PAIN AT THIS TIME. WILL CONTINUE TO MONITOR PATIENT. FALL AND SAFETY PRECAUTIONS OBSERVED. ALL NEEDS ATTENDED. CALL LIGHT WITHIN REACH, BED WHEELS LOCKED, BED AT LOW POSITION AND BED ALARM ON.
[2019-06-27 20:14] VITALS: BP 117/50
[2019-06-27] MEDS: DOCUSATE SODIUM 100 MG CAPSULE PO SCH (20:49)
[2019-06-27] MEDS: ATORVASTATIN 20 MG TABLET PO SCH (20:49)
--- NOTE | 2019-06-28 04:20 | NUR ---
PATIENT IS IN BED, ASLEEP. EASILY AROUSED. NO RESPIRATORY OR ACUTE DISTRESS. PATIENT KEPT WARM, DRY, AND COMFORTABLE. PATIENT TURNED AND REPOSITIONED FOR WOUND AND SKIN MANAGEMENT. PROVIDED SKIN TREATMENT ORDERED. PATIENT COMPLAINED OF PAIN DURING CHANGING OF DIAPER. AFTER CHANGING, PATIENT DENIED OF PAIN AND REFUSED PAIN MEDICATION. PATIENT THEN VERBALIZED SHE IS COMFORTABLE. ALL NEEDS ATTENDED. WILL CONTINUE TO MONITOR PATIENT AND CONTINUE TO OBSERVE FALL, SAFETY, AND HIP PRECAUTIONS.
[2019-06-28 04:50] VITALS: BP 131/58
[2019-06-28] MEDS: HYDROCODONE/APAP 5-325MG TABLET PO PRN (06:00)
[2019-06-28] MEDS: BLOOD SUGAR DIAGNOSTIC 1 EACH STRIP VI SCH ×4 (06:31→20:45)
[2019-06-28 08:10] VITALS: BP 131/43
[2019-06-28] MEDS: INSULIN REGULAR, HUMAN 300 UNIT/3 ML VIAL SQ PRN ×3 (08:20→20:47)
[2019-06-28] MEDS: ENOXAPARIN SODIUM 40 MG/0.4 ML DISP.SYRIN SQ SCH (08:21)
[2019-06-28] MEDS: GABAPENTIN 100 MG CAPSULE PO SCH ×3 (08:26→16:48)
[2019-06-28] MEDS: METOPROLOL SUCCINATE XL 50 MG TAB.SR.24H PO SCH (08:26)
[2019-06-28] MEDS: ASCORBIC ACID 500 MG TABLET PO SCH (08:27)
[2019-06-28] MEDS: PROTEIN SUPPLEMENT (PROSTAT) 30 ML LIQUID PO SCH ×3 (08:27→16:49)
[2019-06-28] MEDS: METFORMIN HCL 500 MG TABLET PO SCH ×2 (08:27→16:49)
[2019-06-28] MEDS: CLOTRIMAZOLE 1% CREAM 30 GM TUBE TOP SCH ×2 (08:28→16:49)
[2019-06-28] MEDS ORDERED: SENNOSIDES 1 TABLET PO SCH (09:00)
--- NOTE | 2019-06-28 14:51 | NUR ---
RECEIVED PATIENT AWAKE IN BED IN STABLE CONDITION. CONTINUE BLOOD SUGAR MONITORING WITH SLIDING SCALE PROTOCOL. PATIENT CONTINUE SKIN SACRUM TREATMENT. TURNING POSITIONING. ENCOURAGE FLUID INTAKE. PATIENT CHANGE DIAPER IF NEEDED. HAD IMPACTED BM IN THE BATHROOM. HELP HER REMOVE THE BOWEL WITH GOOD EFFECT. CONTINUE OFF LOADING HEEL FOR SKIN PROTECTION. CONTINUE SKIN CARE PROVIDED. PATIENT TOLERATES THERAPY WELL. CONTINUE PAIN MANAGEMENT IF NEEDED WITH GOOD EFFECT. WILL CONTINUE MONITOR. Addendum: 06/28/19 at 1626 by NICOLLE STARK RN RN APPLIED HYDROGEL AND COVER WITH MEPILEX IN SACRUM WOUND.
[2019-06-28 16:00] VITALS: BP 127/57
--- NOTE | 2019-06-28 16:52 | NUR ---
PATIENT REFUSE TO TURN THE OTHER SIDE THIS AFTERNOON. VERBALIZE SHE IS GOOD, WANTS TO SLEEP.
--- NOTE | 2019-06-28 19:45 | NUR ---
Sleeping during initial rounds. No s/s of respiratory distress. Safety measure and fall precaution maintained. Continue care as planned.
[2019-06-28] MEDS: DOCUSATE SODIUM 100 MG CAPSULE PO SCH (20:42)
[2019-06-28] MEDS: ATORVASTATIN 20 MG TABLET PO SCH (20:42)
[2019-06-28 20:44] VITALS: BP 126/63
[2019-06-29 05:34] VITALS: BP 114/59
--- NOTE | 2019-06-29 05:46 | NUR ---
Shift End Report: Vs stable. Slept well. No complaint presented all night. All needs attended and met. No significant event reported. Continue current rehab plan of care.
[2019-06-29] MEDS: BLOOD SUGAR DIAGNOSTIC 1 EACH STRIP VI SCH ×2 (06:24→11:52)
[2019-06-29] MEDS: INSULIN REGULAR, HUMAN 300 UNIT/3 ML VIAL SQ PRN ×2 (07:43→11:56)
[2019-06-29] MEDS: METFORMIN HCL 500 MG TABLET PO SCH (08:07)
[2019-06-29] MEDS: CLOTRIMAZOLE 1% CREAM 30 GM TUBE TOP SCH (08:08)
[2019-06-29] MEDS: ASCORBIC ACID 500 MG TABLET PO SCH (08:08)
[2019-06-29] MEDS: METOPROLOL SUCCINATE XL 50 MG TAB.SR.24H PO SCH (08:08)
[2019-06-29] MEDS: GABAPENTIN 100 MG CAPSULE PO SCH ×2 (08:08→12:07)
[2019-06-29] MEDS: PROTEIN SUPPLEMENT (PROSTAT) 30 ML LIQUID PO SCH ×2 (08:08→12:00)
[2019-06-29] MEDS: ENOXAPARIN SODIUM 40 MG/0.4 ML DISP.SYRIN SQ SCH (08:14)
[2019-06-29 08:31] VITALS: BP 133/48
--- NOTE | 2019-06-29 14:33 | NUR ---
Patient discharge to home around 2pm via private transport accompanied with son. Patient in stable condition. Discharge instruction given to son and patient. verbalilze understanding. Therapy assisted them to car and show how to transfer to car from wheelchair. Son instruct how to do wound treatment. Patient thankful to care given to her. Wound picture taken. Healing in progress noted. Fax prescription to pharmacy. MD Olson and MD white aware.
--- NOTE | 2019-06-29 15:12 | NUR ---
Social Work Note: central office worker attempted to meet with patient for follow up however patient already discharged back home.
== END 2019-06-29 14:00 | disposition home health service (06) | DRG 560 ==
PROVIDERS: ADMIT Physical Medicine & Rehabilitation Pain Medicine; ATTEND Physical Medicine & Rehabilitation Pain Medicine
DX: S72.012D Unspecified intracapsular fracture of left femur, subsequent encounter for closed fracture with routine healing (principal); D68.59 Other primary thrombophilia; E24.9 Cushing's syndrome, unspecified; N39.0 Urinary tract infection, site not specified; I10 Essential (primary) hypertension; W18.30XD Fall on same level, unspecified, subsequent encounter; E78.5 Hyperlipidemia, unspecified; Z95.0 Presence of cardiac pacemaker; K21.9 Gastro-esophageal reflux disease without esophagitis; I25.2 Old myocardial infarction; D64.9 Anemia, unspecified; E11.65 Type 2 diabetes mellitus with hyperglycemia; F32.9 Major depressive disorder, single episode, unspecified; L89.150 Pressure ulcer of sacral region, unstageable; I25.10 Atherosclerotic heart disease of native coronary artery without angina pectoris; I70.0 Atherosclerosis of aorta; Z90.711 Acquired absence of uterus with remaining cervical stump; Z96.642 Presence of left artificial hip joint; R53.1 Weakness; R26.9 Unspecified abnormalities of gait and mobility; M19.90 Unspecified osteoarthritis, unspecified site; Z88.8 Allergy status to other drugs, medicaments and biological substances; E11.51 Type 2 diabetes mellitus with diabetic peripheral angiopathy without gangrene
CPT/HCPCS: 36415; 73502; 82652; 83735; 84100; 84443; 85025; 87086; C1758; J1650; J1815